=== PATIENT | male | born 1945 | race Caucasian/White ===

== ENCOUNTER 2021-11-22 01:24 | Day surgery (SDC) | payer MEDICARE, SELFPAY ==
[2021-11-13 15:20] VITALS: BMI 32.5
--- NOTE | 2021-11-13 15:28 | PC.NURSE ---
Report to the Outpatient Waiting Room, entrance under the green pavilion located off [facility], at time ___1100____ on date __11/22/21 . OR Time: __1200 . - You and your visitor will be asked a series of questions to screen for COVID 19 for your protection. - Only one visitor is allowed at this time. - The patient visitor is requested to leave or wait in car when not with patient. - A mask is required within the hospital. -LIGHT BREAKFAST - Infants may have breast milk until 4 hours before surgery, infant formula 6 hours prior to surgery. - Children will be allowed to drink immediately following surgery. If applicable, please bring a bottle or sippy cup to assist with drinking. Juice, water, soda, and popsicles are readily available. For infants on formula, please bring formula the day of surgery. Pacifiers are allowed. Take the following medications with a SIP of water the morning of surgery: REG HOME MEDS Medications to discontinue per physician N/A Date to take last dose Please no make-up, nail armenian, hairspray, perfume, deodorant, or body powder the day of surgery. No jewelry (including any body piercings) or valuables the day of surgery, leave them at home. Please take a shower or bath the night before, or the morning of, surgery with an antibacterial soap. Wear comfortable, loose fitting clothing. Children are encouraged to wear pajamas. - Jewelry must be removed prior to entering the operating room. Rings and piercings that are not removed may be cut off. - The hospital will not accept responsibility for valuables. - Please leave all valuables, including medications, at home the day of surgery. If you are going home after surgery, a licensed otr van cdl truck driver must drive you home. - NO public transportation without another adult. - We recommend that an adult stay with you for 24 hours following discharge. - We also recommend that you do not drive, make important decision, drink alcoholic beverages, or take any drugs that were not prescribed by your health care provider for at least 24 hours after your discharge time. For Pediatric surgeries, we recommend two adults accompany the child home (only one inside the building at this time). Follow any additional instructions given to you from your surgeon. If you or anyone in your household have experienced Covid symptoms in the past week, please notify your surgeon or the nurse liaison at the phone number below for possible testing. Telephone instructions given to ____PT'S SPOUSE (ISAAC) PER PT REQUEST and asked if any additional questions and then verbalized understanding. Patient advised to call surgeon office or pre surgery nurse liaison [phone] if any additional questions.
[2021-11-22] VITALS (11 sets, daily range): BP systolic 129–163; BP diastolic 68–87; PULSE 45–58; RESP 16–18; TEMP 36.8; O2SAT 95–99
--- NOTE | 2021-11-22 07:12 | WPDHPUPDATE1 ---
History and Physical Update Update Date/Time: 11/22/21 07:12 History and Physical has been reviewed, including an updated exam of the patient. There are NO changes in the patient's condition. Risks, benefits, and alternatives have been discussed and questions answered. Patient agrees to proceed with procedure.
--- NOTE | 2021-11-22 08:04 | SUR.OPER ---
Frozen Sections given to VEDA Su. Received by Nat in lab at [id number]
[2021-11-22] MEDS: LIDO 1%/EPINEPHRINE/PF 1:200,000 30 ML VIAL 10 ML XX (08:30)
--- NOTE | 2021-11-22 09:19 | W.PM.PROC2 ---
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 Post-op Diagnosis Other (SCC right antihelix. Actinic keratosis upper right antihelix.) Procedure Performed 1.5 cm excision of SCC of the right antihelix with FS and FTSG 1.5 sq. cm. 0.6 cm excision of hard keratotic neoplasm of the right upper antihelix with FS and FTSG 0.6 cm sq. cm. Surgeon Aneudy King MD Anesthesia Local Indications SCC and tender hard mass of upper antihelix. Findings No residual SCCA. Actinic keratosis. Description of Procedure The previous biopsy site and a small hard keratotic mass, both on the antihelix by 1.5 cm, were marked on the ear while the patient was in the holding area. He was then taken to the operating room and placed supine on the operating table. Time-out was held and confirmed. The 2 sites were marked for excision and locally infiltrated with 1% lidocaine with epinephrine. The right face and neck were prepped and draped in usual fashion. The excision around the previous biopsy site was performed 1st. Dissection with scissors to remove the mass off the perichondrium. 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 The specimen was marked at superior aspect with a suture and sent for frozen section. The pathologist reported there was no residual squamous cell carcinoma. The smaller hard mass was taken off with a narrow-margin scalpel excision extending to the perichondrium. At specimen was also marked at the superior aspect with a suture for 12:00 o'clock and sent to pathology. The pathologist reported that the diagnosis was actinic keratosis. Full-thickness graft was harvested from below the ear. The donor site was closed with intradermal 4-0 Vicryl and glue. The graft defatted and split to resurface both wounds. They were inset with 5 0 nylon. A Xeroform and Glascock ear cup dressing was applied. Patient tolerated the procedure well and was discharged to the recovery room in stable condition. He is being discharged home with a prescription for cephalexin 500 mg t.i.d. 15. And some tramadol 50 mg 1 or 2 p.o. q.6 hours as needed for pain 8. Estimated Blood Loss 10 Drains No Packing No Pathology Yes Complications No immediate complications Disposition Same day
== END 2021-11-22 09:30 | disposition home or self-care (01) ==
PROVIDERS: PCP Family Medicine; Visit Provider Plastic Surgery
PROC: (CPT 11642; principal; 2021-11-22 07:30)
DX: D04.21 Carcinoma in situ of skin of right ear and external auricular canal (principal); L57.0 Actinic keratosis; Z79.01 Long term (current) use of anticoagulants; G20 Parkinson's disease
CPT/HCPCS: 11642; 15260; 11441; 88305; 88331; A9270